=== PATIENT | female | born 1960 | race Caucasian/White ===

== ENCOUNTER 2018-12-21 22:47 | Emergency (ER) | payer OTHER ==
[~2018-12-21] VITALS: Ht 167.6 cm; Wt 96.4 kg
[2018-12-21 23:01] VITALS: BP 153/85
[2018-12-21] MEDS ORDERED: ST. JOSEPH ASPI81 MG PO (23:04)
[2018-12-21] MEDS ORDERED: CYTOMEL 5MCG TA5 MCG PO (23:04)
[2018-12-21] MEDS ORDERED: SYNTHROID100 MC1 PO (23:04)
== END 2018-12-21 23:20 | disposition home or self-care (01) ==
LOC: M.ERS 22:47
DX: Z46.89 Encounter for fitting and adjustment of other specified devices (principal); E03.9 Hypothyroidism, unspecified